=== PATIENT | male | born 1995 | race Caucasian/White ===

== ENCOUNTER 2018-01-12 09:52 | Emergency (ER) | payer MEDICAID, SELFPAY ==
[2018-01-12 10:09] VITALS: BP 121/66; PULSE 74; RESP 14; TEMP 37.2; O2SAT 99
--- NOTE | 2018-01-12 10:22 | W.ED.GENAD ---
Discharge Plan Disposition Patient Disposition: HOME Condition: Good Discharge Details Chief Complaint: Orthopedic Clinical Impression: Laceration of right index finger Primary Care Provider: Fei Kwan ED Provider: Beck Mojica Discharge Instructions Instructions: Skin Adhesive Care (ED) Medical Decision Making pt was at work and cut his right index finger on acrylic. Denies other injuries, states he had tetanus vaccine within the past year. Has a 1cm very surpericial laceration to palmar surface of the right index finger. Full rom so doubt tendon injury and sensation intact. Closed with skin adhesive, will d/c home and return precautions given Differential Diagnosis lac, abrasion HPI General Mode of arrival: ambulatory. Date/Time Provider Initiated Documentation: 01/12/18 09:52. Limitations to Documentation: no limitations. Information obtained by: patient. History of Present Illness 23 year old M presents to the emergency department with the chief complaint of right index finger laceration, described as mild, with intensity rated at 2. and is localized to the right and upper extremity. Patient reports no radiation. Patient started experiencing this hour(s) (1) and it has been constant. No relieving factors improve symptom(s), No exacerbating factors reported . Patient notes no other symptoms.. Patient did receive the following treatments prior to arrival, none Related Data Allergies Allergy/AdvReac Type Severity Reaction Status Date / Time Dust Mites, Trees, Cut grass Allergy Unknown Uncoded 05/31/17 18:53 General Stated Complaint: Orthopedic DM: 5 Review of Systems Review of Systems All systems reviewed & are unremarkable except as noted in HPI and below Constitutional Denies chills, Denies fever(s) and Denies weakness Eyes Denies loss of vision ENT Denies change in voice Cardiovascular Denies chest pain and Denies dyspnea Respiratory Denies dyspnea Gastrointestinal Denies abdominal pain, Denies nausea and Denies vomiting Musculoskeletal Denies joint swelling Neurologic Denies loss of vision and Denies weakness Psychiatric Denies depression [facility] Social History Smoking/Tobacco Use Status: Current every day Exam Const General: no acute distress Orientation: alert HENMT Head: normal to inspection Ears: external ears normal General nose exam: external nose normal Mouth: moist mucous membranes Eyes General: appearance normal, both eyes and all related structures Neck Neck: normal visual inspection Resp Effort & Inspection: normal respiratory effort and able to speak in complete sentences Cardio Rate: regular rate Skin General skin exam: no rashes or lesions noted Neuro General: alert and oriented x3 Extrem General: full ROM and normal capillary refill Psych Mental Status: mental status grossly normal Course Vital Signs Temperature 37.2 C 01/12/18 10:09 Pulse 74 01/12/18 10:09 Respiratory Rate 14 01/12/18 10:09 Blood Pressure 121/66 01/12/18 10:09 Pulse Oximetry 99 01/12/18 10:09 Temperature 37.2 C 01/12/18 10:09 Temperature Source Temporal Artery Scan 01/12/18 10:09 Pulse 74 01/12/18 10:09 Respiratory Rate 14 01/12/18 10:09 Respiratory Effort 01/12/18 10:12 Blood Pressure 121/66 01/12/18 10:09 Blood Pressure Position Sitting 01/12/18 10:09 Pulse Oximetry 99 01/12/18 10:09 Oxygen Delivery Method Room Air 01/12/18 10:09 Oxygen Flow Rate 0 01/12/18 10:09 Pain Level 2 01/12/18 10:09 Procedures Laceration Laceration 1: Site: hand Side (If applicable): right Size (cm): 1 Description: linear Depth: simple, single layer Pre-repair: irrigated extensively Skin layer closed with: other (skin adhesive)
--- NOTE | 2018-01-12 10:25 | ED.GENADUL_ITS ---
Discharge Plan Disposition Patient Disposition: HOME Condition: Good Discharge Details Chief Complaint: Orthopedic Clinical Impression: Laceration of right index finger Primary Care Provider: Fei Kwan ED Provider: Beck Mojica Discharge Instructions Instructions: Skin Adhesive Care (ED) Medical Decision Making pt was at work and cut his right index finger on acrylic. Denies other injuries , states he had tetanus vaccine within the past year. Has a 1cm very surpericial laceration to palmar surface of the right index finger. Full rom so doubt tendon injury and sensation intact. Closed with skin adhesive, will d/c home and return precautions given Differential Diagnosis lac, abrasion HPI General Mode of arrival: ambulatory . Date/Time Provider Initiated Documentation: 01/12/18 09:52 . Limitations to Documentation: no limitations . Information obtained by: patient . History of Present Illness 23 year old M presents to the emergency department with the chief complaint of right index finger laceration, described as mild, with intensity rated at 2. and is localized to the right and upper extremity. Patient reports no radiation. Patient started experiencing this hour(s) (1) and it has been constant. No relieving factors improve symptom(s), No exacerbating factors reported . Patient notes no other symptoms.. Patient did receive the following treatments prior to arrival, none Related Data Allergies Allergy/AdvReac Type Severity Reaction Status Date / Time Dust Mites, Trees, Cut grass Allergy Unknown Uncoded 05/31/17 18:53 General Stated Complaint: Orthopedic DM: 5 Review of Systems Review of Systems All systems reviewed & are unremarkable except as noted in HPI and below Constitutional Denies chills, Denies fever(s) and Denies weakness Eyes Denies loss of vision ENT Denies change in voice Cardiovascular Denies chest pain and Denies dyspnea Respiratory Denies dyspnea Gastrointestinal Denies abdominal pain, Denies nausea and Denies vomiting Musculoskeletal Denies joint swelling Neurologic Denies loss of vision and Denies weakness Psychiatric Denies depression [facility] Social History Smoking/Tobacco Use Status: Current every day Exam Const General: no acute distress Orientation: alert HENMT Head: normal to inspection Ears: external ears normal General nose exam: external nose normal Mouth: moist mucous membranes Eyes General: appearance normal, both eyes and all related structures Neck Neck: normal visual inspection Resp Effort & Inspection: normal respiratory effort and able to speak in complete sentences Cardio Rate: regular rate Skin General skin exam: no rashes or lesions noted Neuro General: alert and oriented x3 Extrem General: full ROM and normal capillary refill Psych Mental Status: mental status grossly normal Course Vital Signs Temperature 37.2 C 01/12/18 10:09 Pulse 74 01/12/18 10:09 Respiratory Rate 14 01/12/18 10:09 Blood Pressure 121/66 01/12/18 10:09 Pulse Oximetry 99 01/12/18 10:09 Temperature 37.2 C 01/12/18 10:09 Temperature Source Temporal Artery Scan 01/12/18 10:09 Pulse 74 01/12/18 10:09 Respiratory Rate 14 01/12/18 10:09 Respiratory Effort 01/12/18 10:12 Blood Pressure 121/66 01/12/18 10:09 Blood Pressure Position Sitting 01/12/18 10:09 Pulse Oximetry 99 01/12/18 10:09 Oxygen Delivery Method Room Air 01/12/18 10:09 Oxygen Flow Rate 0 01/12/18 10:09 Pain Level 2 01/12/18 10:09 Procedures Laceration Laceration 1: Site: hand Side (If applicable): right Size (cm): 1 Description: linear Depth: simple, single layer Pre-repair: irrigated extensively Skin layer closed with: other (skin adhesive)
== END 2018-01-12 10:47 | disposition home or self-care (01) ==
LOC: ER 10:52
PROVIDERS: Emergency Provider Emergency Medicine; PCP Family Medicine
DX: S61.210A Laceration without foreign body of right index finger without damage to nail, initial encounter (principal); W26.8XXA Contact with other sharp object(s), not elsewhere classified, initial encounter; Y99.0 Civilian activity done for income or pay
CPT/HCPCS: 12001

== ENCOUNTER 2018-09-19 13:43 | Emergency (ER) | payer OTHER, SELFPAY ==
[2018-09-19 13:49] VITALS: BP 131/79; PULSE 103; RESP 16; TEMP 36.7; O2SAT 98
--- NOTE | 2018-09-19 15:19 | ED.GENADUL_ITS ---
Discharge Plan Disposition Patient Disposition: HOME Condition: Stable Discharge Details Chief Complaint: Laceration Clinical Impression: Laceration Primary Care Provider: Fei Kwan ED Provider: Raquel Campbell Home Meds and New Rx's Prescriptions: No Action No Known Home Meds RF: 0 Discharge Instructions Instructions: Laceration (ED) Additional Instructions: Please return immediately to the emergency department if you develop any new or worsening symptoms or if you become otherwise concerned. It is extremely important that you call as soon as possible to make an appointment to be seen in follow-up by your primary care doctor. You will need to have your stitches removed in 10 days. Referrals: Fei Kwan. [Primary Care Provider] - Discharge Data Discharge Date/Time-TO BE ENTERED AT DEPARTURE: 09/19/18 15:58 Medical Decision Making <NEW Hickman - Last Filed: 09/19/18 15:33> Procedure note: Using standard sterile technique, the area was anesthetized with 1% Lidocaine plain. 6cc was infiltrated, this sufficiently anesthetized the area. The wound was then copiously irrigated with sterile saline and cleansed with chlorohexadine. Wound explored to base in a bloodless field. No FB or debris noted. Patient does have a hockey stick shaped 2cm laceration into subQ tissue, no tendonous or bony involvement. Sensation remained intact. A very superficial abrasion runs along this 4mm from the wound. Attention turned to closure, wound edges aligned well, #7 simple interuppted stitches placed with 6-0 prolene. Patient tolerated procedure well. Sterile dressing applied by nursing staff. <Raquel Campbell MD - Last Filed: 09/26/18 22:35> Dax Benítez is a 23 y/o man without reported h/o medical problems who presented to the emergency department with laceration to proximal left 3rd digit sustained JPTA. On exam Pt is well and non-toxic appearing. HR 103 at triage, now 80. Left hand and digits NVI, no bony TTP. Simple angulated laceration without apparent contamination. Exam/hx not c/w fx, occult FB, tendon or nerveinjury. Laceration irrigated and repaired by Jillian Sanders, please see procedure note. I had a lengthy discussion with the Pt re: RTED precautions, importance of outpt f/u, home care. Pt verbalized understanding of the plan and was amenable. All questions were answered. Pt was d/nallely to home with clear plan for outpt f/u. Medical Records Medical records reviewed: Yes I reviewed the patient's medical records. HPI <NEW Hickman - Last Filed: 09/19/18 15:33> General Date/Time Provider Initiated Documentation: 09/19/18 13:54 . Related Data Home Medications Medication Instructions Recorded Confirmed Unknown [No Known Home Meds] 09/02/18 09/19/18 Allergies Allergy/AdvReac Type Severity Reaction Status Date / Time Dust Mites, Trees, Cut grass Allergy Unknown Uncoded 09/02/18 10:07 <Raquel Campbell MD - Last Filed: 09/26/18 22:35> General Mode of arrival: ambulatory . Limitations to Documentation: no limitations . Information obtained by: patient, RN notes reviewed and old records reviewed . HPI Narrative: Dax Benítez is a 23 y/o man without reported h/o medical problems on no medications presenting to the emergency department with laceration. Pt reports that he was at work tightening a screw JPTA when his hand slipped, and he sustained a laceration to the base of the left 3rd digit. Bleeding controlled. No other injury. Denies numbness/tingling, focal weakness, any other pain. Was previously well and in his usual state of health without symptoms. Tetanus updated within one year per Pt. General Stated Complaint: Laceration DM: 4 <Raquel Campbell MD - Last Filed: 09/26/18 22:35> Review of Systems Constitutional: denies fevers Eyes: denies eye pain ENT: denies facial pain, dental pain, sore throat Cardiovascular: denies chest pain Respiratory: denies SOB, cough GI: denies abdominal pain, vomiting : denies flank pain MSK: denies back pain, neck pain, arthralgias, myalgias Skin: denies rash, reports wound as per HPI Neuro: denies headaches, numbness, weakness PFSH <NEW Hickman - Last Filed: 09/19/18 15:33> Social History Smoking/Tobacco Use Status: Current every day Drug use: Occasionally Do you feel safe in your relationship?: Yes <Raquel Campbell MD - Last Filed: 09/26/18 22:35> Narrative Exam Narrative: Constitutional: well and [id number], pleasant, conversing normally HENT: head atraumatic/normocephalic/normal inspection, mucous membranes moist Eyes: conjunctiva normal, sclera normal, pupils 3mm b/l Neck: no stridor, trachea midline Resp: normal work of breathing, LCTAB Cardio: normal rate, normal rhythm, no murmur appreciated Back: normal inspection, no rash Skin: warm, dry, normal color, no rash Neuro: alert, not altered, grossly non-focal, normal tone Ext: left 3rd digit with 2.5 angular laceration to proximal aspext, involves int erdigital webbing. no apparent FB. Superficial. Bleeding controlled. FROM all digits with normal extension/flexion. Brisk cap refill to digits, normal sensation. No bony TTP of the digits or hand. Normal 2 point discrimination. Psych: normal mood, normal affect, normal behavior <Raquel Campbell MD - Last Filed: 09/26/18 22:35> Vital Signs Temperature 36.7 C 09/19/18 13:49 Pulse 103 H 09/19/18 13:49 Respiratory Rate 16 09/19/18 13:49 Blood Pressure 131/79 09/19/18 13:49 Pulse Oximetry 98 09/19/18 13:49 Temperature 36.7 C 09/19/18 13:49 Temperature Source Skin 09/19/18 13:49 Pulse 103 H 09/19/18 13:49 Respiratory Rate 16 09/19/18 13:49 Respiratory Effort Non-Labored 09/19/18 13:49 Blood Pressure 131/79 09/19/18 13:49 Blood Pressure Position Sitting 09/19/18 13:49 Pulse Oximetry 98 09/19/18 13:49 Oxygen Delivery Method Room Air 09/19/18 13:49 Oxygen Flow Rate 0 09/19/18 13:49 Pain Level 4 09/19/18 13:49
== END 2018-09-19 15:58 | disposition home or self-care (01) ==
PROVIDERS: Emergency Provider Student in an Organized Health Care Education/Training Program; PCP Family Medicine
DX: S61.213A Laceration without foreign body of left middle finger without damage to nail, initial encounter (principal); W45.8XXA Other foreign body or object entering through skin, initial encounter
CPT/HCPCS: 12001

== ENCOUNTER 2019-04-04 16:22 | Emergency (ER) | payer OTHER, SELFPAY ==
[2019-04-04 16:25] VITALS: BP 123/68; PULSE 84; RESP 18; TEMP 36.7; O2SAT 98
--- NOTE | 2019-04-04 16:31 | W.ED.GENAD ---
Discharge Plan Disposition Patient Disposition: HOME Condition: Stable Discharge Details Chief Complaint: Orthopedic Clinical Impression: Thumb injury Primary Care Provider: Fei Kwan ED Provider: Ronald Franco Home Meds and New Rx's Prescriptions: Continued buprenorphine-naloxone [Suboxone] 12-3 mg Film 1 film BUCCAL Q24H RF: 0 Discharge Instructions Instructions: Finger Sprain (ED) Additional Instructions: Please wear splint 7-10 days as needed. Followup with regular doctor or return if pain persists beyond 7 days. Tylenol and/or Ibuprofen if needed for pain. Ice to reduce pain and swelling. Return for any acute concerns. Stand Alone Forms: Work Release Discharge Data Discharge Date/Time-TO BE ENTERED AT DEPARTURE: 04/04/19 17:05 Medical Decision Making 24yom with R thumb/hand pain after punching a solid object this weekend. Worse after work today. Exam reassuring but with some pain to base of thumb. No laxity. No skin breakdown. XR without acute bony findings. Placed in thumb spica splint, and discussed immobilization with as needed followup if pain persists. HPI General Mode of arrival: ambulatory. Date/Time Provider Initiated Documentation: 04/04/19 16:26. Limitations to Documentation: no limitations. Information obtained by: patient. History of Present Illness described as mild, Quality is described as dull and constant, and is localized to the right and upper extremity. Patient reports no radiation. Patient started experiencing this day(s) and it has been constant. Rest improves symptom(s), Movement worsens symptoms . Patient notes no other symptoms.; denies fever/chills and weakness. Patient did receive the following treatments prior to arrival, none Related Data Home Medications Medication Instructions Recorded Confirmed buprenorphine-naloxone [Suboxone] 1 film BUCCAL Q24H 04/04/19 04/04/19 Allergies Allergy/AdvReac Type Severity Reaction Status Date / Time Dust Mites, Trees, Cut grass Allergy Unknown Uncoded 04/04/19 16:27 General Stated Complaint: Orthopedic DM: 4 Review of Systems Narrative: no skin breakdown, no other injury, no numbness, no laxity, no weakness COUNT INCLUDES THE [facility] Social History Smoking/Tobacco Use Status: Current every day Alcohol Intake: never Drug use: Occasionally Substance use type: former substance user Do you feel safe at home: Yes Do you feel safe in your relationship?: Yes Exam Narrative Exam Narrative: GEN: awake, alert, oriented 3. Pleasant, well groomed, interactive. HEAD: Normocephalic, atraumatic ENT: Mucous membranes moist, oropharynx unremarkable, External ear exam unremarkable EYES: PERRL, EOMI Neuro: Grossly normal neurologic exam, conversant, interactive. Psych: Speech fluent, thoughts congruent, affect normal Extrem General: normal to inspection, full ROM and normal capillary refill Right upper extremity: normal to inspection, normal capillary refill, wrist Details: no tenderness and no swelling and hand Details: other (normal thumb apposition, patient makes ok sign, crosses long finger over index and apposes thumb to pinky normally. Minimal pain with palpation of pase of thumb, no pain with resisted supination or axial loading.) Course Vital Signs Vital signs: Vital Signs Temperature 36.7 C 04/04/19 16:25 Pulse 84 04/04/19 16:25 Respiratory Rate 18 04/04/19 16:25 Blood Pressure 123/68 04/04/19 16:25 Pulse Oximetry 98 04/04/19 16:25 Temperature 36.7 C 04/04/19 16:25 Temperature Source Skin 04/04/19 16:25 Pulse 84 04/04/19 16:25 Respiratory Rate 18 04/04/19 16:25 Respiratory Effort 04/04/19 16:29 Blood Pressure 123/68 04/04/19 16:25 Pulse Oximetry 98 04/04/19 16:25 Oxygen Delivery Method Room Air 04/04/19 16:25 Oxygen Flow Rate 0 04/04/19 16:25 Pain Level 8 04/04/19 16:25
--- NOTE | 2019-04-04 16:40 | DI.RAD_ITS ---
EXAM: XR WRIST RT COMPL NAVICULAR CLINICAL HISTORY: R thumb pain after punching. TECHNIQUE: 2D digital imaging was performed. COMPARISON: No exams were available for comparison FINDINGS: BONES: No acute fracture is present. No bony destructive lesion is seen. JOINTS: The carpal bones are normally aligned. SOFT TISSUE: Normal. IMPRESSION: Unremarkable radiographs of the right wrist.
--- NOTE | 2019-04-04 16:55 | DI.VRAD_ITS ---
PROCEDURE INFORMATION: Exam: XR Right Wrist Exam date and time: 04/04/2019 4:40 PM Age: 24 years old Clinical indication: Other: R thumb pain after punching TECHNIQUE: Imaging protocol: XR Right wrist. Views: 3 or more views. COMPARISON: No relevant prior studies available. FINDINGS: Bones/joints: No acute fracture or dislocation. Joint spaces are unremarkable. Soft tissues: Unremarkable. IMPRESSION: No acute fracture or dislocation. Dictated and Authenticated by: Tr Sahni MD. Ordering:KILEY Cardenas MD
--- NOTE | 2019-04-04 17:04 | NUR.NOTE ---
patient fitted with thumb splint and teaching provided from RN. Nursing Note:
== END 2019-04-04 17:05 | disposition home or self-care (01) ==
LOC: ER 17:13
PROVIDERS: Emergency Provider Emergency Medicine; PCP Family Medicine
DX: S69.91XA Unspecified injury of right wrist, hand and finger(s), initial encounter (principal); W22.8XXA Striking against or struck by other objects, initial encounter
CPT/HCPCS: 29125; 99283; 73110; L3807